=== PATIENT | male | born 1965 ===

== ENCOUNTER 2020-04-25 09:56 | Outpatient (REF) | payer OTHER, SELFPAY | END 2020-04-25 09:57 | disposition home or self-care (01) | LOC: HO.LAB 09:56 | PROVIDERS: Visit Provider Internal Medicine | DX: Z20.828 Contact with and (suspected) exposure to other viral communicable diseases (principal) | CPT/HCPCS: C9803; U0003 ==

== ENCOUNTER 2020-12-28 11:17 | Emergency (ER) | payer OTHER, SELFPAY ==
[2020-12-28 11:44] VITALS: BP 131/88; PULSE 63; RESP 18; TEMP 36.8; O2SAT 97; BMI 28.5
--- NOTE | 2020-12-28 12:34 | ED_ITS ---
HPI - General Adult General Chief complaint: General Medical Stated complaint: rectal pain Time Seen by Provider: 12/28/20 12:34 Source: patient Mode of arrival: ambulatory Limitations: language barrier (Patient's 1st language is Indonesian, he does speak Greenlandic, nursing services manager was used) History of Present Illness HPI narrative: 55-year-old male who presents emergency department for evaluation of rectal pain. Patient states that the pain started yesterday. He states is a constant throbbing pain which is 10/10 at its worst. The pain is worse with movement. The patient's noted that there is a large hemorrhoid in the patient's rectal area. The patient states this never had hemorrhoids before. The patient was using preparation H with no relief of the pain. He took Tylenol with no relief of the pain. He denied fever, chills, abdominal pain, nausea vomiting, fever. Related Data Allergies Allergy/AdvReac Type Severity Reaction Status Date / Time No Known Allergies Allergy Verified 12/28/20 11:47 Review of Systems Review of Systems: Yes all other systems are reviewed and are negative [facility] Past Medical History [facility] Narrative: Past medical history: none. Past surgical history: none. Social history: Denies tobacco use, he occasionally drinks alcohol, he states he occasionally smokes marijuana. Medical History (Updated 12/28/20 @ 13:04 by Tony Zuniga MD) No known health problems Social History Social History Advance Directives: Yes Advance Directives Information Provided: Yes Advance Directives on File: No Physical Exam Vital Signs: Vital Signs: Last Vital Signs Temp 98.2 F 12/28/20 11:44 Pulse 63 12/28/20 11:44 Resp 18 12/28/20 11:44 BP 131/88 12/28/20 11:44 Pulse Ox 97 12/28/20 11:44 Body Mass Index 28.5 Const: General: cooperative and healthy appearing Orientation/consciousness : oriented to person and oriented to place Limitations: no limitations HENMT: Head: Yes normal to inspection, Yes normocephalic and Yes atraumatic Ears: external ears normal General nose exam: Normal external nose present Face and sinus: Yes normal facial exam Mouth: Normal oral and palatal mucosa present Throat: Yes posterior oropharynx normal Eyes: Periorbital: periorbital findings normal Eyelids: Yes eyelids normal Conjunctivae: conjunctivae normal Sclerae: sclerae normal Corneas: corneas normal Pupils: Equal, round and reactive pupils present Direct Ophthalmoscopy: normal light reflex Neck: Neck: Yes full ROM, Yes no lymphadenopathy, Yes no meningeal signs, Yes trachea midline and Yes supple Chest: Chest palpation & inspection: normal inspection of the chest and normal palpation of entire chest wall Resp: Effort & Inspection: normal respiratory effort and able to speak in complete sentences Auscultation: clear to auscultation bilaterally Cardio: Rate: regular rate Rhythm: regular rhythm Heart sounds: S1 normal heart sound present, S2 normal heart sound present and no murmurs GI: Other: Patient has a large 2 by 3 cm external hemorrhoid which is very firm to palpation and extremely tender. There is no active Inspection: Yes normal to inspection Palpation (GI): Soft to palpation, nontender, no guarding and not rigid : General: Yes no CVA tenderness Back/Spine/Pelvis: Back: no CVA tenderness Cervical Spine: normal cervical lordosis Thoracic/Lumbar Spine: thoracic and lumbar spine normal to inspection Skin: Lesions: no lesions Rashes: no rashes Wounds: no wounds Neuro: General: oriented to person, oriented to place and no meningeal signs Cranial nerves: Yes Equal, round and reactive pupils present Cognition (Neuro): normal cognition Extrem: General: Yes normal to inspection and Yes full ROM Psych: Appearance: well kempt Mental Status: mental status grossly normal Speech and movement: Normal speech and movement present Affect: normal affect Course Course Course Narrative: 55-year-old male who presents emergency department for evaluation of 1 day of rectal pain. The patient does have a 2 x 3 cm thrombosed hemorrhoid. I did discuss thrombectomy with the patient however he does not want to pursue this option at this time and wants to continue to try outpatient medications. Patient was advised to use preparation H hemorrhoid cream with hydrocortisone 3 times a day, preparation H suppositories 3 times a day, sats past 3 to 4 times a day, Colace and Metamucil. Was advised return to the emergency department if his symptoms get worse. He will be referred to one of our general surgeons as well to be re-evaluated as an outpatient for possible h emorrhoid thrombectomy. Discharge Plan Discharge Clinical Impression: Pain in rectum, External hemorrhoid, thrombosed Patient Disposition: Home, Self-Care Instructions: Thrombosed Hemorrhoid (ED) Additional Instructions: Your examination is consistent with a thrombosed hemorrhoid. Sometimes these can be improved with azwi-klg-qhcjqah medications however sometimes you need the clot removed from the hemorrhoid to help the pain. At this time, we have chosen to try aofi-nzx-potzuap medications. Soak in a warm bath 3 to 4 times a day to help break down the clot in the hemorrhoid and to help reduce the pain. Use preparation H hemorrhoid cream with hydrocortisone 3 times a day on the hemorrhoid and reapplied after each bowel movement for the next week. Insert preparation H suppositories 3 times a day and after each bowel movement. Take Colace 1 pill twice a day for 2 weeks, this is a stool softener. Take Metamucil fiber supplement 1 tsp in 8 oz of water twice a day for 2 weeks. Follow-up with our general surgeon, Dr. Mosquera in 1 week. Please return to the emergency department if your symptoms get worse or if you develop any symptoms that are concerning to you. Referrals: Jonh Mosquera MD [Physician] - 1 week (Thrombosed hemorrhoid, patient wants to try pevp-ale-jksfqwt medications 1st. Advised to follow-up with you in 1 week if he is not better for re-evaluation.) Stand Alone Forms: Work/School Release
[2020-12-28] MEDS: Lidocaine HCl 1 % MPF 5 ML VIAL INFILTRATI ×2 (12:47→12:48)
== END 2020-12-28 13:33 | disposition home or self-care (01) ==
PROVIDERS: Emergency Provider Emergency Medicine Emergency Medical Services
DX: K64.5 Perianal venous thrombosis (principal); K62.89 Other specified diseases of anus and rectum
CPT/HCPCS: 99283

== ENCOUNTER 2023-06-26 10:08 | Emergency (ER) | payer SELFPAY ==
--- NOTE | ~2023-06-26 | XR_ITS ---
EXAMINATION: XR KNEE, LEFT CLINICAL INFORMATION: Pain twisted months ago COMPARISON: None available. TECHNIQUE: 5 views of the left knee. FINDINGS: No acute visible fracture or dislocation. Mild multicompartment arthritic changes. A fabella is noted in the posterior compartment. No large knee joint effusion. Soft tissues are unremarkable. XR/XR knee LT 3V IMPRESSION: 1. No acute visible fracture or dislocation. 2. Mild multicompartment arthritic changes.
[2023-06-26 10:16] VITALS: BP 134/84; PULSE 68; RESP 8; TEMP 36.6; O2SAT 99; BMI 28.3
--- NOTE | 2023-06-26 11:29 | ED_ITS ---
HPI - General Adult General Chief complaint: Extremity Injury, Lower Stated complaint: L leg pain Time Seen by Provider: 06/26/23 11:29 Source: patient Mode of arrival: ambulatory Limitations: no limitations History of Present Illness HPI narrative: Patient is a 57 year old assigned male at with no reported medical history presenting to the emergency department today with left knee pain. Patient states that approximately 2 months ago he twisted his left knee and continues to have intermittent left knee pain. Patient denies any dizziness, lightheadedness, abdominal pain, nausea, vomiting, fever, chills, blurry vision, double vision, loss of vision, chest pain, difficulty breathing, shortness of breath, back pain, night sweats, pain with urination, increased urinary frequency, increased urinary urgency, blood in his urine or stool, syncope or a near syncopal episode, bowel incontinence, bladder incontinence, bowel retention, bladder retention, or any other complaints at this time. Onset (ago): month(s) (2) Location: left and lower extremity Radiation: non-radiation Severity: mild Severity scale (1-10): 4 Quality: aching and dull Pain Consistency: constant Relieving factors: none Exacerbating factors: none Associated symptoms: denies other symptoms Treatments prior to arrival: none Related Data Allergies Allergy/AdvReac Type Severity Reaction Status Date / Time No Known Allergies Allergy Verified 06/26/23 10:16 Review of Systems Constitutional: Constitutional: Reports no additional constitutional complaints, Denies chills, Denies fever(s) and Denies night sweats Eyes: Eyes: Reports no additional eye complaints, Denies blurry vision, Denies change in vision, Denies diplopia, Denies eye discharge, Denies loss of vision and Denies eye pain ENT: Denies dizziness Cardiovascular: Cardiovascular: Reports no additional cardiovascular complaints, Denies chest pain, Denies lightheadedness, Denies Loss of Consciousness and Denies dyspnea Respiratory: Respiratory: Reports no additional respiratory complaints and Denies dyspnea Gastrointestinal: Gastrointestinal: Reports no additional gastrointestinal complaints, Denies abdominal pain, Denies melena, Denies hematochezia, Denies change in bowel habits and Denies change in stool character Genitourinary: Genitourinary: Reports no additional male genitourinary complaints, Denies hematuria, Denies oliguria, Denies difficulty urinating, Denies dysuria, Denies urinary frequency, Denies urinary hesitancy, Denies urinary incontinence and Denies urinary urgency Musculoskeletal: Musculoskeletal: Reports no additional musculoskeletal complaints, Denies numbness and Denies tingling Comments: left knee pain Neurologic: Denies dizziness, Denies loss of vision, Denies numbness and Denies tingling Psychiatric: Psychiatric: Reports no additional psychiatric complaints Endocrine: Endocrine: Reports no additional endocrine complaints Hematologic/Lymphatic: Hematologic/Lymphatic: Reports no additional hematologic/lymphatic complaints Allergic/Immunologic: Allergic/Immunologic: Reports no additional allergic/immunologic complaints [facility] Past Medical History Attestation statement: The following information was validated with the patient. Source: old records reviewed and nursing notes reviewed Onset Date is defined in the Problem List Problems that require an onset date and time if occurred within 24 hrs of arr ival to the ED Aortic Dissection and Rupture; Neurologic impairment; Cardiopulmonary Arrest; Endotracheal Intubation; Insertion or Replacement of Mechanical Circulatory Assi st Device Medical History No known health problems Social History Social History Use of substances other than those prescribed or required for medical reasons: No Advance Directives: No Physical Exam ED Vital Signs: Vital Signs - 24 hr 06/26/23 10:16 06/26/23 12:14 Temperature 98 F 98 F Pulse Rate 68 69 Respiratory Rate 8 L 16 Blood Pressure 134/84 153/90 H Pulse Oximetry 99 98 Oxygen Delivery Method Room Air Room Air BMI result Body Mass Index 28.3 Const General: cooperative, no acute distress, alert and awake Nutritional Appearance: well nourished Orientation/consciousness: patient oriented x3 Limitations: no limitations [facility] Head: Yes normal to inspection and Yes atraumatic Ears: hearing grossly normal bilaterally and external ears normal General nose exam: Normal external nose present, no nasal discharge noted and no epistaxis Face and sinus: Yes normal facial exam, No abrasion and No laceration Mouth: Normal oral and palatal mucosa present, no drooling and no muffled voice Eyes General: appearance normal, both eyes and all related structures Periorbital: periorbital findings normal Eyelids: Yes eyelids normal Conjunctivae: conjunctivae normal Pupils: Equal, round and reactive pupils present EOM: EOMs intact bilaterally Neck Neck: Yes normal visual inspection, Yes full ROM and Yes no lymphadenopathy Chest Chest palpation & inspection: normal inspection of the chest Resp Effort & Inspection: normal respiratory effort and able to speak in complete sentences GI Inspection: Yes normal to inspection Neuro General: patient oriented x3 and moves all extremities Cranial nerves: Yes Equal, round and reactive pupils present Cognition (Neuro): normal cognition Motor exam (neuro): 5/5 motor strength present throughout Sensory Exam: Normal double simultaneous stimulation for sensation Coordination: hdbvhv-gz-blmn test normal Extrem General: Yes normal to inspection, Yes full ROM and Yes capillary refill normal Psych Appearance: grossly normal Mental Status: mental status grossly normal Affect: normal affect Attitude: cooperative Thought process: Normal thought process present Thought content: Normal thought content present Insight: Good insight present (Psych) Medical Decision Making Medical Decision Making MDM Narrative: Patient is a 57 year old assigned male at with no reported medical history presenting to the emergency department today with left knee pain. Patient's physical exam was unremarkable. Patient's left knee x-ray showed no acute process. I explained my physical exam findings as well as all test results to the patient. I answered all questions asked by the patient. I stressed the importance of the patient taking his medication as prescribed. I stressed the importance of the patient following up with his primary care provider and an orthopedic provider. I stressed the importance of the patient returning to the emergency department immediately if his symptoms were to worsen or if he were to develop any dizziness, shortness of breath, difficulty breathing, chest pain, blurry vision, loss of vision, nausea, vomiting, abdominal pain, fever, chills, back pain, or any other complaints. Patient verbalized agreement and understanding with this treatment plan and discharge. Differential Diagnosis Differential Diagnoses: The differential diagnosis associated with the presentation includes Knee pain Knee sprain Internal knee injury Admission/Observation Consideration of admission/observation: Escalation of care including admission/observation considered Patient would have been admitted to the hospital had his work up had any findings where hospital admission was appropriate and his clinical presentation warranted hospital admission. Independent Interpretation I performed an independent interpretation of an: Plain X-Ray Interpretation: My interpretation is in agreement with the radiologist's impression of this imaging study. EXAMINATION: XR KNEE, LEFT CLINICAL INFORMATION: Pain twisted months ago COMPARISON: None available. TECHNIQUE: 5 views of the left knee. FINDINGS: No acute visible fracture or dislocation. Mild multicompartment arthritic changes. A fabella is noted in the posterior compartment. No large knee joint effusion. Soft tissues are unremarkable. XR/XR knee LT 3V IMPRESSION: 1. No acute visible fracture or dislocation. 2. Mild multicompartment arthritic changes. Dictated By: Deanna Kiran MD Signed By: Electronically signed by Deanna Kiran MD 06/26/23 1115 Radiology Impression Discussion of test interpretation with radiology: I have reviewed the radiologist's reading. Discharge Plan Discharge Clinical Impression: Acute knee pain Patient Disposition: Home, Self-Care Instructions: Knee Pain (ED) Additional Instructions: Follow up with your primary care provider and an orthopedic provider. Return to the emergency department immediately if your symptoms worsen or if you develop any dizziness, shortness of breath, difficulty breathing, chest pain, blurry vision, loss of vision, nausea, vomiting, abdominal pain, fever, chills, back pain, or any other complaints. Nayla un seguimiento con ibarra proveedor de atenci?n primaria y un proveedor ortop?dico. Regrese al departamento de emergencias inmediatamente si huy s?ntomas empeoran o si presenta mareos, dificultad para respirar, dificultad para respirar, dolor en el pecho, visi?n borrosa, p?rdida de la visi?n, n?useas, v?mitos, dolor abdominal, fiebre, escalofr?os, dolor de espalda o cualquier otras quejas. Referrals: [facility] [place] Family Medicine [Provider Group] (Call to establish and follow up with a primary care provider. If you already have a primary care provider, please follow up with them. Llame para establecer y realizar un seguimiento con un proveedor de atenci?n primaria. Si ya tiene un proveedor de atenci?n primaria, nayla un seguimiento con ?l.) [facility] [place] [facility] [Provider Group] (Call to establish and follow up with a primary care provider. If you already have a primary care provider, please follow up with them. Llame para establecer y realizar un seguimiento con un proveedor de atenci?n primaria. Si ya tiene un proveedor de atenci?n primaria, nayla un seguimiento con ?l.) [facility] (Call to establish and follow up with a primary care provider. If you already have a primary care provider, please follow up with them. Llame para establecer y realizar un seguimiento con un proveedor de atenci?n primaria. Si ya tiene un proveedor de atenci?n primaria, nayla un seguimiento con ?l.) [facility] [place] Orth[facility] Surgeons [Provider Group] (Call to establish and follow up with an orthopedic provider. Llame para establecer y realizar un seguimiento con un proveedor ortop?dico.) Interventions: ED Discharge Assessment Last Done: 06/26/23 12:25 Discharge Date/Time: 06/26/23 12:25 Print Language: Moldovan
[2023-06-26 12:14] VITALS: BP 153/90; PULSE 69; RESP 16; TEMP 36.6; O2SAT 98
== END 2023-06-26 12:25 | disposition home or self-care (01) ==
PROVIDERS: Emergency Provider Emergency Medicine
DX: M25.562 Pain in left knee (principal)
CPT/HCPCS: 73562; 99283; 99284